=== PATIENT | male | born 1995 | race Caucasian/White ===

== ENCOUNTER 2021-02-21 08:24 | Emergency (ER) | payer BC, OTHER ==
--- NOTE | 2021-02-21 08:39 | EDM.PDOC ---
ED HPI GENERAL MEDICAL PROBLEM - General Stated Complaint: CHEST PAIN Time Seen by Provider: 02/21/21 08:37 Source of Information: Reports: Patient, RN, RN Notes Reviewed History Limitations: Reports: No Limitations - History of Present Illness INITIAL COMMENTS - FREE TEXT/NARRATIVE: Jelani is a 25 y/o male who presents to the ED via personal vehicle with complaints of chest pain. The patient notes the pain began at approximately 1700 last night. The pressure-type pain waxes and wanes in severity, but rates it at an 8/10 at it's worst; he is not currently experiencing any pain. He feels when he holds his breath the pain is better. He denies recent illness, fever, shaking chills, sore throat, abdominal pain, nausea, vomiting, or dysuria. He does attest to chronic dry cough, palpitations, and daily diarrhea. Additionally, he notes occasional pre-syncopal events which he correlated to his daily energy drink intake and one pack a day cigarette smoking. His last meal was last evening after the pain started. He last drank alcohol two nights ago, at which time he consumed about eight shots of whiskey. He denies recreational drug use. Mid-Sternal Chest Pain Score (Numeric/FACES): 8 - Related Data Allergies Allergy/AdvReac Type Severity Reaction Status Date / Time No Known Allergies Allergy Verified 02/21/21 08:38 Home Meds: Home Meds . [No Known Home Meds] 10/30/13 [History] Past Medical History - Past Health History Medical/Surgical History: Denies Medical/Surgical History ED ROS GENERAL - Review of Systems Review Of Systems: Comprehensive ROS is negative, except as noted in HPI. ED EXAM, GENERAL - Physical Exam Exam: See Below Exam Limited By: No Limitations General Appearance: Alert, No Apparent Distress Eye Exam: Bilateral Eye: EOMI, Normal Inspection, PERRL (3mm) Nose: Normal Inspection, Normal Mucosa, No Blood Throat/Mouth: Normal Inspection, Normal Lips, Normal Oropharynx, Normal Voice, No Airway Compromise Head: Atraumatic, Normocephalic Neck: Normal Inspection, Supple, Non-Tender, Full Range of Motion. No: Lymphadenopathy (L), Lymphadenopathy (R) Respiratory/Chest: No Respiratory Distress, Lungs Clear, Normal Breath Sounds, No Accessory Muscle Use. No: Chest Non-Tender Cardiovascular: Normal Peripheral Pulses, Regular Rate, Rhythm, No Edema, No Gallop, No JVD, No Murmur, No Rub, Tachycardia, Extra Beats Peripheral Pulses: 2+: Radial (L), Radial (R) GI/Abdominal: Soft, Non-Tender, No Distention, No Abnormal Bruit, No Mass, Pelvis Stable, Abnormal Bowel Sounds (Hypoactive bowel sounds) Back Exam: Normal Inspection, Full Range of Motion Extremities: Normal Inspection, Normal Range of Motion, Non-Tender, No Pedal Edema, Normal Capillary Refill Neurological: Alert, Oriented, CN II-XII Intact, Normal Cognition, Normal Gait, No Motor/Sensory Deficits Psychiatric: Normal Affect, Normal Mood Skin Exam: Warm, Intact, Normal Color, No Rash, Diaphoretic. No: Ecchymosis, Jaundice, Mottled, Pallor #1 Interpretation EKG Date: 02/21/21 Time: 08:33 Rhythm: NSR Rate (Beats/Min): 85 [place]: Normal P-Wave: Present QRS: Normal ST-T: Normal QT: Normal NM/PQ Interval: 0.143 Comparison: NA - No Prior EKG EKG Interpretation Comments: NSR with PVC; No evidence of acute myocardial ischemia. Course - Vital Signs Last Recorded V/S: Last Vital Signs Temp 96.3 F L 02/21/21 08:38 Pulse 87 02/21/21 08:38 Resp 16 02/21/21 08:38 BP 142/92 H 02/21/21 08:38 Pulse Ox 100 02/21/21 08:38 - Orders/Labs/Meds Orders: Active Orders 24 hr Category Date Time Status EKG Documentation Completion [RC] STAT Care 02/21/21 08:36 Active Labs: Laboratory Tests 02/21/21 02/21/21 02/21/21 Range/Units 08:38 08:38 08:38 WBC 8.5 (5.0-10.0) 10^3/uL RBC 5.71 (4.6-6.2) 10^6/uL Hgb 16.8 (14.0-18.0) g/dL Hct 47.1 (40.0-54.0) % MCV 82.5 (80-100) fL MCH 29.4 (27.0-34.0) pg MCHC 35.7 H (33.0-35.0) g/dL Plt Count 143 L (150-450) 10^3/uL Neut % (Auto) 59.7 (42.2-75.2) % Lymph % (Auto) 24.3 (20.5-50.1) % [place] % (Auto) 13.7 H (2-8) % Eos % (Auto) 1.9 (1.0-3.0) % Baso % (Auto) 0.4 (0.0-1.0) % Sodium 140 (136-145) mmol/L Potassium 3.9 (3.5-5.1) mmol/L Chloride 103 (98-107) mmol/L Carbon Dioxide 25 (21-32) mmol/L Anion Gap 15.9 H (7-13) mEq/L BUN 14 (7-18) mg/dL Creatinine 1.23 (0.70-1.30) mg/dL Est Cr Clr Drug Dosing 105.81 mL/min Estimated GFR (MDRD) > 60 BUN/Creatinine Ratio 11.4 (No establ ref range) Glucose 110 H (70-99) mg/dL Lactic Acid 0.7 (0.4-2.0) mmol/L Calcium 9.1 (8.5-10.1) mg/dL Total Bilirubin 0.6 (0.2-1.0) mg/dL AST 25 (15-37) U/L ALT 51 (16-63) U/L Alkaline Phosphatase 75 (46-116) U/L Troponin I High Sens 32 (<=76) pg/mL C-Reactive Protein 1.4 H (0.0-0.9) mg/dL Total Protein 6.8 (6.4-8.2) g/dL Albumin 3.8 (3.4-5.0) g/dL Globulin 3.0 Albumin/Globulin Ratio 1.3 Amylase 27 (25-115) U/L Lipase 75 (73-393) U/L Urine Color (YELLOW) Urine Appearance (CLEAR) Urine pH (5.0-9.0) Ur Specific [place] (1.005-1.030) Urine Protein (NEGATIVE) Urine Glucose (UA) (NEGATIVE) Urine Ketones (NEGATIVE) Urine Occult Blood (NEGATIVE) Urine Nitrite (NEGATIVE) Urine Bilirubin (NEGATIVE) Urine Urobilinogen (0.2-1.0) mg/dL Ur Leukocyte Esterase (NEGATIVE) Urine Opiates Screen (NEGATIVE) Ur Oxycodone Screen (NEGATIVE) Urine Methadone Screen (NEGATIVE) Ur Barbiturates Screen (NEGATIVE) U Tricyclic Antidepress (NEGATIVE) Ur Phencyclidine Scrn (NEGATIVE) Ur Amphetamine Screen (NEGATIVE) U Methamphetamines Scrn (NEGATIVE) Urine MDMA Screen (NEGATIVE) U Benzodiazepines Scrn (NEGATIVE) Urine Cocaine Screen (NEGATIVE) U Marijuana (THC) Screen (NEGATIVE) Ethyl Alcohol < 3 (0) mg/dL SARS-CoV-2 RNA ([place]) (NEGATIVE) 02/21/21 02/21/21 02/21/21 Range/Units 08:39 09:31 09:31 WBC (5.0-10.0) 10^3/uL RBC (4.6-6.2) 10^6/uL Hgb (14.0-18.0) g/dL Hct (40.0-54.0) % MCV (80-100) fL MCH (27.0-34.0) pg MCHC (33.0-35.0) g/dL Plt Count (150-450) 10^3/uL Neut % (Auto) (42.2-75.2) % Lymph % (Auto) (20.5-50.1) % [place] % (Auto) (2-8) % Eos % (Auto) (1.0-3.0) % Baso % (Auto) (0.0-1.0) % Sodium (136-145) mmol/L Potassium (3.5-5.1) mmol/L Chloride (98-107) mmol/L Carbon Dioxide (21-32) mmol/L Anion Gap (7-13) mEq/L BUN (7-18) mg/dL Creatinine (0.70-1.30) mg/dL Est Cr Clr Drug Dosing mL/min Estimated GFR (MDRD) BUN/Creatinine Ratio (No establ ref range) Glucose (70-99) mg/dL Lactic Acid (0.4-2.0) mmol/L Calcium (8.5-10.1) mg/dL Total Bilirubin (0.2-1.0) mg/dL AST (15-37) U/L ALT (16-63) U/L Alkaline Phosphatase (46-116) U/L Troponin I High Sens (<=76) pg/mL C-Reactive Protein (0.0-0.9) mg/dL Total Protein (6.4-8.2) g/dL Albumin (3.4-5.0) g/dL Globulin Albumin/Globulin Ratio Amylase (25-115) U/L Lipase (73-393) U/L Urine Color Yellow (YELLOW) Urine Appearance Clear (CLEAR) Urine pH 6.5 (5.0-9.0) Ur Specific [place] 1.025 (1.005-1.030) Urine Protein Negative (NEGATIVE) Urine Glucose (UA) Negative (NEGATIVE) Urine Ketones Negative (NEGATIVE) Urine Occult Blood Negative (NEGATIVE) Urine Nitrite Negative (NEGATIVE) Urine Bilirubin Negative (NEGATIVE) Urine Urobilinogen 0.2 (0.2-1.0) mg/dL Ur Leukocyte Esterase Negative (NEGATIVE) Urine Opiates Screen Negative (NEGATIVE) Ur Oxycodone Screen Negative (NEGATIVE) Urine Methadone Screen Negative (NEGATIVE) Ur Barbiturates Screen Negative (NEGATIVE) U Tricyclic Antidepress Negative (NEGATIVE) Ur Phencyclidine Scrn Negative (NEGATIVE) Ur Amphetamine Screen Negative (NEGATIVE) U Methamphetamines Scrn Negative (NEGATIVE) Urine MDMA Screen Negative (NEGATIVE) U Benzodiazepines Scrn Negative (NEGATIVE) Urine Cocaine Screen Negative (NEGATIVE) U Marijuana (THC) Screen Negative (NEGATIVE) Ethyl Alcohol (0) mg/dL SARS-CoV-2 RNA ([place]) Negative (NEGATIVE) Meds: Medications Discontinued Medications Generic Name Dose Route Start Last Admin Trade Name Freq PRN Reason Stop Dose Admin Sodium Chloride 1,000 mls @ 999 mls/hr 02/21/21 08:50 02/21/21 08:55 Normal Saline IV 02/21/21 09:50 999 mls/hr .BOLUS ONE Administration - Radiology Interpretation Free Text/Narrative:: [facility] Final Radiology Report Call: [phone] assistance Online chat: [email or web address] Name: JELANI MURPHY Age: 25Years M Date: 02/21/2021 SSN: -- : [id number] Study: CR CHEST 1V FRONTAL Requesting Physician: Anca Zelaya Images: 1 Addl Studies: Provided Clinical History: Chest pain Contrast: Contrast Medium: Contrast Amount: Contrast Method: CONFIDENTIALITY STATEMENT This report is intended only for use by the referring physician, and only in accordance with law. If you received this in error, call [phone]. Page 1 of 1 PROCEDURE INFORMATION: Exam: XR Chest Exam date and time: 02/21/2021 9:02 AM Age: 25 years old Clinical indication: Other: Chest pain TECHNIQUE: Imaging protocol: XR of the chest. Views: 1 view. COMPARISON: No relevant prior studies available. FINDINGS: Lungs: Unremarkable. No consolidation. Pleural spaces: Unremarkable. No pleural effusion. No pneumothorax. Heart/Mediastinum: Unremarkable. No cardiomegaly. Bones/joints: Unremarkable. IMPRESSION: No acute findings. Thank you for allowing us to participate in the care of your patient. Dictated and Authenticated by: Ximena Bennett MD 02/21/2021 9:31 AM Central Time ([place] & [place]) - Re-Assessments/Exams Free Text/Narrative Re-Assessment/Exam: 02/21/21 Patient verbalized improvement in chest pressure/pain following NS 1L bolus. Findings of examination, lab work, and imaging reviewed with patient. Discussed detriment of excessive use of tobacco, alcohol, and energy drinks to health. Discussed importance of establishing with a primary care provider. Red flag signs and symptoms which would warrant reevaluation reviewed. Patient verbalized understanding and agreement with the plan of care. Departure - Departure Time of Disposition: 09:53 Disposition: Home, Self-Care 01 Condition: Good Clinical Impression: Atypical chest pain, Dehydration Instructions: Nonspecific Chest Pain, Adult, [id number] Forms: ED Department Discharge Additional Instructions: 1.) Drink plenty of water to stay hydrated. 2.) Refrain from drinking energy drinks. 3.) Refrain from drinking alcohol to excess. 4.) Decrease tobacco use; even one less cigarette a day is improvement! 5.) Establish with a primary care provider. Sepsis Event Note (ED) - Focused Exam Vital Signs: Vital Signs Temp Pulse Resp BP Pulse Ox 02/21/21 08:38 96.3 F L 87 16 142/92 H 100 - My Orders Last 24 Hours: My Active Orders 02/21/21 08:36 EKG Documentation Completion [RC] STAT - Assessment/Plan Last 24 Hours: My Active Orders 02/21/21 08:36 EKG Documentation Completion [RC] STAT
[2021-02-21] MEDS ORDERED: Sodium Chloride 0.9% 1,000 ML IV ONE (08:50)
[2021-02-21 09:09] LABS: ANION GAP 15.9 mEq/L (7-13); CHLORIDE,CL 103 mmol/L (98-107); SODIUM,NA 140 mmol/L (136-145)
--- NOTE | 2021-02-21 09:32 | CR ---
PROCEDURE INFORMATION: Exam: XR Chest Exam date and time: 02/21/2021 9:02 AM Age: 25 years old Clinical indication: Other: Chest pain TECHNIQUE: Imaging protocol: XR of the chest. Views: 1 view. COMPARISON: No relevant prior studies available. FINDINGS: Lungs: Unremarkable. No consolidation. Pleural spaces: Unremarkable. No pleural effusion. No pneumothorax. Heart/Mediastinum: Unremarkable. No cardiomegaly. Bones/joints: Unremarkable. IMPRESSION: No acute findings.
[2021-02-21 10:01] VITALS: BP 140/77; PULSE 86
== END 2021-02-21 10:05 | disposition home or self-care (01) ==
LOC: DL.ED 08:24
DX: R07.89 Other chest pain (principal); E86.0 Dehydration; Z20.822 Contact with and (suspected) exposure to COVID-19
CPT/HCPCS: 36415; 71045; 80053; 80305; 80307; 81003; 82150; 83605; 83690; 84484; 85025; 86140; 87635; 93005; 99285; J7030; 93010; 99284; U0002